=== PATIENT | female | born 1990 ===

== ENCOUNTER 2021-04-12 08:48 | Outpatient (CLI) | payer OTHER | END 2021-04-12 09:48 | disposition home or self-care (01) | LOC: PRENATAL 08:48 | PROVIDERS: ATTEND Obstetrics & Gynecology Maternal & Fetal Medicine | DX: O35.0XX1 Maternal care for (suspected) central nervous system malformation in fetus, fetus 1 (principal); O35.3XX1 Maternal care for (suspected) damage to fetus from viral disease in mother, fetus 1; O98.512 Other viral diseases complicating pregnancy, second trimester; Z36.89 Encounter for other specified antenatal screening; Z3A.22 22 weeks gestation of pregnancy ==

== ENCOUNTER 2021-06-24 09:47 | Inpatient (IN) | payer OTHER ==
[~2021-06-24] VITALS: Ht 157.5 cm; Wt 54.4 kg
[2021-06-26] MEDS ORDERED: PRENATAL CAPLE1 EAC1 PO (12:13)
[2021-06-26] MEDS ORDERED: FOLIC ACID0.8 M1 PO (12:14)
[2021-06-26] MEDS ORDERED: CHILDREN'S ASPI81 MG PO (12:15)
[2021-07-28] MEDS ORDERED: NAPR500T14 PO (05:58)
== END 2021-07-28 12:58 | disposition home or self-care (01) | DRG 807 ==
LOC: OBS/DEL 09:47 → LDR 10:34 → SURG-SUITE 06-26 13:44 → LDR 06-26 13:56 → OB/GYN 06-29 18:46 → SURG-SUITE 07-26 14:50
PROVIDERS: ADMIT Obstetrics & Gynecology; ATTEND Obstetrics & Gynecology
PROC: 10E0XZZ Delivery of Products of Conception, External Approach (ICD-10-PCS; principal; 2021-06-24)
PROC: 4A1HXFZ Monitoring of Products of Conception, Cardiac Rhythm, External Approach (ICD-10-PCS; 2021-06-24)
DX: O60.23X0 Term delivery with preterm labor, third trimester, not applicable or unspecified (principal); Z37.0 Single live birth; O99.824 Streptococcus B carrier state complicating childbirth; Z3A.33 33 weeks gestation of pregnancy